=== PATIENT | female | born 1990 | race Two or more races ===

== ENCOUNTER 2023-01-10 00:31 | Emergency (ER) | payer MEDICAID, OTHER ==
[~2023-01-10] VITALS: Ht 172.7 cm; Wt 67.7 kg
[2023-01-10 03:17] VITALS: BP 114/82
[2023-01-10] MEDS ORDERED: CEPH500C PO (04:24)
== END 2023-01-10 04:54 | disposition home or self-care (01) ==
LOC: ER 00:31
DX: L03.112 Cellulitis of left axilla (principal); Z88.6 Allergy status to analgesic agent

== ENCOUNTER 2023-01-11 20:23 | Emergency (ER) | payer MEDICAID ==
[~2023-01-11] VITALS: Ht 172.7 cm; Wt 65.9 kg
[~2023-01-11 20:23] MED LIST: CEPH500C PO
[2023-01-11 23:00] VITALS: BP 126/84
[2023-01-11] MEDS ORDERED: KETOROLAC TROMETH 30 MG/ML 1ML VIAL IM ONE (23:00)
== END 2023-01-11 23:06 | disposition home or self-care (01) ==
LOC: ER 20:23
DX: L02.412 Cutaneous abscess of left axilla (principal); Z88.6 Allergy status to analgesic agent
CPT/HCPCS: 10060; 96372; 99283; J1885

== ENCOUNTER 2024-01-08 09:25 | Emergency (ER) | payer SELFPAY ==
[~2024-01-08] VITALS: Ht 172.7 cm; Wt 65.7 kg
[2024-01-08 11:31] LABS: Urine Bacteria FEW /hpf (None Seen); Urine Blood Negative /uL (Negative); Urine Clarity Clear (Clear); Urine Color Yellow (Yellow); Urine Protein, UAD Negative (Negative); Urine Urobilinogen Normal (Negative); Urine WBC 34 /hpf (0 - 5)
[2024-01-08 11:34] LABS: Basophils # (auto) 0 10 ^3/uL (0-0.2); Basophils % (auto) 0.3 % (0.0-2.0); Eosinophils # (auto) 0 10 ^3/uL (0-0.8); Eosinophils % (auto) 0.3 % (0.0-7.0); Hematocrit 43.4 % (36.0-46.0); Hemoglobin 14.8 g/dL (12.2-16.2); Lymphocytes # (auto) 1.6 10 ^3/uL (0.4-5.4); Lymphocytes % (auto) 15.9 % (10.0-50.0); Mean Corpuscular Volume 91.1 fL (80.0-100.0); Monocytes # (auto) 1.4 10 ^3/uL (0-1.3); Neutrophils % (auto) 69.5 % (37.0-80.0); Red Blood Cells 4.76 10^6/uL (4.0-5.20); White Blood Cell 10.1 10^3/uL (4.4-10.8)
[2024-01-08 12:01] LABS: Alanine Aminotransferase 13 U/L (7-40); Albumin 4.7 g/dL (3.2-4.8); Alkaline Phosphatase 67 U/L (46-116); Anion Gap 6 (5-15); Aspartate Aminotransferase 13 U/L (13-40); BUN/Creatinine Ratio 6.7 (10.0-20.0); Blood Urea Nitrogen 5 mg/dL (9-23); Calcium 9.5 mg/dL (8.5-10.1); Carbon Dioxide 26 mmol/L (20-30); Chloride 105 mmol/L (98-107); Glucose 93 mg/dL (74-106); Potassium 3.6 mmol/L (3.5-5.1); Sodium 137 mmol/L (136-145)
[2024-01-08 12:02] LABS: Bilirubin, Total 0.8 mg/dL (0.2-1.0); Total Protein 7.2 g/dL (5.7-8.2)
[2024-01-08] MEDS: SODIUM CHLORIDE 0.9% 1,000 ML IV ONE (12:16)
[2024-01-08] MEDS: IOHEXOL 300 MG/ML 100ML BOTTLE IJ ONE ×2 (12:16→12:28)
[2024-01-08 12:24] LABS: Lipase 39 U/L (12-53)
[2024-01-08] MEDS ORDERED: NITR-87 PO (14:53)
[2024-01-08] MEDS ORDERED: DICL50TA2 PO (14:53)
[2024-01-08 15:09] VITALS: BP 127/71; PULSE 78; RESP 17; TEMP 98.9; O2SAT 97
== END 2024-01-08 15:18 | disposition home or self-care (01) ==
LOC: ER 09:25
DX: N39.0 Urinary tract infection, site not specified (principal); R10.2 Pelvic and perineal pain; N83.201 Unspecified ovarian cyst, right side; N83.8 Other noninflammatory disorders of ovary, fallopian tube and broad ligament; R10.31 Right lower quadrant pain; Z98.890 Other specified postprocedural states; Z88.5 Allergy status to narcotic agent
CPT/HCPCS: 36415; 74177; 80053; 81001; 83690; 84702; 85025; 96360; 96361; 99285; J7030; Q9967

== ENCOUNTER 2025-03-23 13:09 | Emergency (ER) | payer MEDICAID, OTHER ==
[~2025-03-23] VITALS: Ht 172.7 cm; Wt 64.9 kg
[~2025-03-23 13:09] MED LIST changes: +DICL50TA2 PO; +NITR-87 PO
--- NOTE | 2025-03-23 13:54 | ED.PDOC ---
Lory. trauma (HPI) HPI Comments 34 year old presents for L Rib pain x 5 days No injury Onset started when she woke up in the AM and pain is gradually worsening Pain is constant and radiates from the left ribs to the LUE and down the arm and fingers Pain described as stabbing and worsens with laying supine Pain rated as moderate LMB yesterday Not on BC No other complaints. No other MHx Denies recent surgeries Denies ETOH drugs, Chief Complaint: Rib Pain Time Seen by MD: 13:29 Primary Care Provider: NONE Reviewed notes: Nurses Notes, Medications, Allergies Allergies: Coded Allergies: Hydromorphone (Verified Allergy, Unknown, 01/10/23) Home Meds Active Scripts Nitrofurantoin Monohydrate Mac (Macrobid) 100 Mg Cap, 100 MG PO AMHY for 10 Days, #20 CAP Prov:OSWALDO ARCOS MD 01/08/24 Diclofenac Potassium (Diclofenac Potassium) 50 Mg Tab, 1 TAB PO TIDP for 10 Days, #30 TAB Prov:OSWALDO ARCOS MD 01/08/24 Cephalexin Monohydrate (Cephalexin) 500 Mg Cap, 1 CAP PO BID for 7 Days, #14 CAP 0 Refills Prov:RUSTY LONG 01/10/23 Information Source: Patient Mode of Arrival: Ambulatory Past Medical History PAST MEDICAL HISTORY: Denies 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 Family History Family History: Reviewed,noncontributory to illness Social History Smoker: Non-Smoker Alcohol: Denies ETOH Use Drugs: Denies Drug Use Lives In: Home All Other Systems: Reviewed and Negative Physical Exam General Appearance: No Apparent Distress, Normal HEENT: Normal ENT Inspection, Pharynx Normal, TMs Normal Neck: Full Range of Motion, Non-Tender, Normal, Normal Inspection Respiratory: Chest Non-Tender, Lungs Clear, No Accessory Muscle Use, No Respiratory Distress, Normal Breath Sounds Cardiovascular: No Edema, No JVD, No Murmur, No Gallop, Normal Peripheral Pulses, Regular Rate/Rhythm Breast Exam: Deferred Gastrointestinal: No Organomegaly, Non Tender, No Pulsatile Mass, Normal Bowel Sounds, Soft Genitalia: Deferred Pelvic: Deferred Rectal: Deferred Extremities: No calf tenderness, Normal capillary refill, Normal inspection, Normal range of motion, Non-tender, No pedal edema Musculoskeletal : Apperance: Normal Neurologic: Alert, entry level sales consultant II-XII nml as Tested, No Motor Deficits, Normal Affect, Normal Mood, No Sensory Deficits Cerebellar Function: Normal Reflexes: Normal Skin: Dry, Normal Color, Warm Lymphatic: No Adenopathy Was a procedure done? Was a procedure done?: No Differential Diagnosis Multiple Trauma: Abrasions, Contusion X-Ray, Labs, Meds, VS Vital Signs Date Time Temp Pulse Resp B/P (MAP) Pulse Ox O2 Delivery O2 Flow Rate FiO2 03/23/25 17:43 98.2 82 16 122/84 (97) 98 98.2 03/23/25 17:43 4 17 98 Room Air 03/23/25 13:14 98.1 88 16 118/85 98 98.1 Lab Test 03/23/25 13:57 03/23/25 13:55 Range/Units White Blood Count 8.4 4.4-10.8 10^3/uL Red Blood Count 4.74 4.0-5.20 10^6/uL Hemoglobin 14.3 12.2-16.2 g/dL Hematocrit 42.3 36.0-46.0 % Mean Corpuscular Volume 89.2 80.0-100.0 fL Mean Corpuscular Hemoglobin 30.2 28.0-32.0 pg Mean Corpuscular Hemoglobin Concent 33.9 32.0-36.0 g/dL Red Cell Distribution Width 13.1 11.8-14.3 % Platelet Count 249 140-450 10^3/uL Mean Platelet Volume 7.4 6.9-10.8 fL Neutrophils (%) (Auto) 64.5 37.0-80.0 % Lymphocytes (%) (Auto) 21.8 10.0-50.0 % Monocytes (%) (Auto) 12.1 H 0.0-12.0 % Eosinophils (%) (Auto) 1.1 0.0-7.0 % Basophils (%) (Auto) 0.5 0.0-2.0 % Neutrophils # (Auto) 5.4 1.6-8.6 10 ^3/uL Lymphocytes # (Auto) 1.8 0.4-5.4 10 ^3/uL Monocytes # (Auto) 1.0 0-1.3 10 ^3/uL Eosinophils # (Auto) 0.1 0-0.8 10 ^3/uL Basophils # (Auto) 0 0-0.2 10 ^3/uL Nucleated Red Blood Cells 0.0 % Sodium Level 142 136-145 mmol/L Potassium Level 3.9 3.5-5.1 mmol/L Chloride Level 106 98-107 mmol/L Carbon Dioxide Level 26 20-31 mmol/L Anion Gap 10 5-15 Blood Urea Nitrogen 9 9-23 mg/dL Creatinine 0.82 0.550-1.02 mg/dL Glomerular Filtration Rate Calc 96 >90 mL/min BUN/Creatinine Ratio 11.0 10.0-20.0 Serum Glucose 82 74-106 mg/dL Calcium Level 9.6 8.7-10.4 mg/dL Troponin I High Sensitivity < 3 L </=34 ng/L Lipase 42 12-53 U/L Urine Color Light-yellow Yellow Urine Clarity Clear Clear Urine pH 5.5 5.0-9.0 Urine Specific [place] 1.013 1.001-1.035 Urine Protein Negative Negative Urine Ketones 1+ H Negative Urine Blood Trace H Negative /uL Urine Nitrite Negative Negative Urine Bilirubin Negative Negative Urine Urobilinogen Normal Negative mg/dL Urine Leukocyte Esterase Negative Negative /uL Urine RBC 3 0 - 4 /hpf Urine Microscopic WBC 1 0-5 /HPF Urine Squamous Epithelial Cells Few <5 /hpf Urine Bacteria None seen None Seen /hpf Urine Mucus Few None Seen Urine Glucose Normal Normal mg/dL X-Ray, Labs, Meds, VS Comment I considered cauda equina, spinal cord compression, vertebral malignancy/mets, acute spinal fracture, vertebral osteomyelitis, epidural abscess, infected or obstructed kidney stone, however this is less likely as the patient does not present with lower back pain red flags symptoms such as bowel or bladder dysfunction, saddle anesthesia, paresthesia, and without any history of malignancy or recent back trauma or spinal interventions. ED workup: Defer further imaging and lab work for outpatient follow up at this time Disposition: Discharge. Strict return precautions discussed with the patient with full understanding. Supportive care advised (rest, ice, heat, NSAIDs, stretching exercises) Massage muscles with cold pack or ice for 20 minutes 4 times per day. Usually most useful if there is swelling during the first 48 hours Heating pad on the most painful area for 20 minutes to relieve muscle spasm Sleep and the most comfortable sleeping position (usually on the side with knees bent) Light stretching, no strenuous activity, avoid frequent bending, avoid carrying heavy objects Discussed possible benefits of yoga and acupuncture Return precautions discussed including Inability to walk/bear weight Paresthesia/weakness/leg pain Fecal/urinary incontinence Any worsening symptoms Time of 1ST Reevaluation: 17:00 Reevaluation 1ST: Improved Patient Education/Counseling: Diagnosis, Treatment Family Education/Counseling: Diagnosis, Treatment Departure 1 Departure Time of Disposition: 17:26 Impression: Primary Impression: Back strain Qualified Codes: S39.012A - Strain of muscle, fascia and tendon of lower back, initial encounter Disposition: HOME / SELF CARE / HOMELESS Condition: Stable Discharged With: Self Critical Care Note Critical Care Time?: No Stability Stability form required: No Heart Score Heart Score: Heart Score Response (Comments) Value History N/A 0 EKG N/A 0 Age N/A 0 Risk Factors N/A 0 Troponin N/A 0 Total 0 MIMA JOHNSON NP Mar 23, 2025 13:54
[2025-03-23 14:18] LABS: Hematocrit 42.3 % (36.0-46.0); Hemoglobin 14.3 g/dL (12.2-16.2); Mean Corpuscular Hemoglobin 30.2 pg (28.0-32.0); Mean Corpuscular Volume 89.2 fL (80.0-100.0); Nucleated Red Blood Cells % 0.0 %
[2025-03-23 14:27] LABS: Chloride 106 mmol/L (98-107); Potassium 3.9 mmol/L (3.5-5.1); Sodium 142 mmol/L (136-145)
[2025-03-23 14:28] LABS: Anion Gap 10 (5-15); Calcium 9.6 mg/dL (8.7-10.4); Carbon Dioxide 26 mmol/L (20-31)
[2025-03-23 14:33] LABS: BUN/Creatinine Ratio 11.0 (10.0-20.0); Blood Urea Nitrogen 9 mg/dL (9-23); Glucose 82 mg/dL (74-106)
--- NOTE | 2025-03-23 15:11 | DVH ---
CHEST RADIOGRAPH Indication: R/o PNA Technique: Frontal and lateral view of the chest was obtained Comparison: None FINDINGS: Lines and Tubes: None Lungs: Clear Pleura: No effusion. No pneumothorax. Cardiomediastinal contours: Unremarkable Bones: Unremarkable IMPRESSION: No evidence of acute disease.
[2025-03-23 17:07] LABS: Urine Protein, UAD Negative (Negative)
[2025-03-23 17:43] VITALS: BP 122/84; PULSE 4; RESP 17; TEMP 98.2; O2SAT 98
== END 2025-03-23 17:47 | disposition home or self-care (01) ==
LOC: ER 13:09
DX: S39.012A Strain of muscle, fascia and tendon of lower back, initial encounter (principal); M79.602 Pain in left arm; M79.645 Pain in left finger(s); Z88.5 Allergy status to narcotic agent; Z98.890 Other specified postprocedural states; X58.XXXA Exposure to other specified factors, initial encounter; Y93.89 Activity, other specified; Y92.89 Other specified places as the place of occurrence of the external cause; Y99.8 Other external cause status
CPT/HCPCS: 36415; 71046; 80048; 81001; 83690; 84484; 85025

== ENCOUNTER 2025-04-06 19:02 | Emergency (ER) | payer OTHER ==
[~2025-04-06] VITALS: Ht 172.7 cm; Wt 67.3 kg
[2025-04-06 19:45] LABS: Hematocrit 44.9 % (36.0-46.0); Hemoglobin 15.4 g/dL (12.2-16.2); Mean Corpuscular Hemoglobin 30.5 pg (28.0-32.0); Mean Corpuscular Volume 88.6 fL (80.0-100.0); Nucleated Red Blood Cells % 0.1 %
[2025-04-06 19:51] LABS: Alanine Aminotransferase 17 U/L (7-40); Alkaline Phosphatase 82 U/L (46-116); Anion Gap 9 (5-15); BUN/Creatinine Ratio 12.5 (10.0-20.0); Bilirubin, Total 0.3 mg/dL (0.2-1.0); Blood Urea Nitrogen 10 mg/dL (9-23); Calcium 9.9 mg/dL (8.7-10.4); Carbon Dioxide 29 mmol/L (20-31); Chloride 105 mmol/L (98-107); Lipase 49 U/L (12-53); Potassium 3.7 mmol/L (3.5-5.1); Sodium 143 mmol/L (136-145); Total Protein 7.5 g/dL (5.7-8.2)
[2025-04-06 19:52] LABS: Albumin 4.9 g/dL (3.2-4.8); Glucose 63 mg/dL (74-106)
--- NOTE | 2025-04-06 20:06 | ED.PDOC ---
History of Present Illness HPI Comments 34 y/o F, with a history of , presents with c/c of nonradiating, lower abdominal pain, nausea, and abnormal stools. Patient endorses on 2x day history of sharp abdominal pain with intermittent nausea following initial, unprovoked and atraumatic onset. She comments on, this morning, noticing her stools containing 'worms' inside, that she describes as 'long' and 'white' in appearance. No modifiers or history of similar occurrence in the past. She does admit to having two dogs at home, currently. Denial of any known sick contacts, travel, abnormal food consumption, or further pertinent events or history. Denial of any further associated symptoms at this time. Chief Complaint: Abdominal Pain Time Seen by MD: 19:00 Primary Care Provider: NONE Reviewed Notes: Nurses Notes, Medications, Allergies Allergies: Coded Allergies: Hydromorphone (Verified Allergy, Unknown, 01/10/23) Home Meds Active Scripts Prednisone (Prednisone) 20 Mg Tab, 20 MG PO BID for 5 Days, #10 TAB Prov:DEAN PARKS MD 04/06/25 Albendazole (Albendazole) 200 Mg Tab, 400 MG PO BID for 10 Days, #40 TAB Prov:DEAN PARKS MD 04/06/25 Sulfamethoxazole W/Trimethopri (Bactrim Ds Tablet) 1 Tab Tb, 1 TAB PO BID for 7 Days, #14 TAB Prov:DEAN PARKS MD 04/06/25 Nitrofurantoin Monohydrate Mac (Macrobid) 100 Mg Cap, 100 MG PO AMHY for 10 Days, #20 CAP Prov:OSWALDO ARCOS MD 01/08/24 Diclofenac Potassium (Diclofenac Potassium) 50 Mg Tab, 1 TAB PO TIDP for 10 Days, #30 TAB Prov:OSWALDO ARCOS MD 01/08/24 Cephalexin Monohydrate (Cephalexin) 500 Mg Cap, 1 CAP PO BID for 7 Days, #14 CAP 0 Refills Prov:RUSTY LONG 01/10/23 Information Source: Patient Mode of Arrival: Ambulatory Past Medical History PAST MEDICAL HISTORY: Denies 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 Family History Family History: Reviewed,noncontributory to illness Social History Smoker: Non-Smoker Alcohol: Denies ETOH Use Drugs: Denies Drug Use Lives In: Home All Other Systems: Reviewed and Negative (Comprehensive review of systems are negative unless stated in HPI) Physical Exam General Appearance: Mild Distress, Normal HEENT: Normal ENT Inspection, Pharynx Normal, TMs Normal Neck: Full Range of Motion, Non-Tender, Normal, Normal Inspection Respiratory: Chest Non-Tender, Lungs Clear, No Accessory Muscle Use, No Respiratory Distress, Normal Breath Sounds Cardiovascular: No Edema, No JVD, No Murmur, No Gallop, Normal Peripheral Pulses, Regular Rate/Rhythm Breast Exam: Deferred Gastrointestinal: LLQ (tenderness ), No Organomegaly, No Pulsatile Mass, Normal Bowel Sounds, RLQ (tenderness ), Soft, Tenderness (bilateral lower quadrant tenderness ) Genitalia: Deferred Pelvic: Deferred Rectal: Deferred Extremities: No calf tenderness, Normal capillary refill, Normal inspection, Normal range of motion, Non-tender, No pedal edema Musculoskeletal : Apperance: Normal Neurologic: Alert, protective signal installer II-XII nml as Tested, No Motor Deficits, Normal Affect, Normal Mood, No Sensory Deficits Cerebellar Function: Normal Reflexes: Normal Skin: Dry, Normal Color, Warm Lymphatic: No Adenopathy Was a procedure done? Was a procedure done?: No Differential Dx Considerations may include: viral syndrome, parasites, dehydration, electrolyte imbalance, gastritis, gastroenteritis, GERD, diverticulitis, ovarian cysts/torsion, nephrolithiasis, UTI, among others X-Ray, Labs, Meds, VS Vital Signs Date Time Temp Pulse Resp B/P (MAP) Pulse Ox O2 Delivery O2 Flow Rate FiO2 04/06/25 22:38 98.2 69 18 122/82 (95) 99 98.2 04/06/25 19:03 97.5 89 18 137/89 100 97.5 Lab Test 04/06/25 19:45 04/06/25 19:28 Range/Units Urine Color Colorless Yellow Urine Clarity Turbid H Clear Urine pH 5.5 5.0-9.0 Urine Specific [place] 1.011 1.001-1.035 Urine Protein Negative Negative Urine Ketones Negative Negative Urine Blood Negative Negative /uL Urine Nitrite Negative Negative Urine Bilirubin Negative Negative Urine Urobilinogen Normal Negative mg/dL Urine Leukocyte Esterase 2+ Negative /uL Urine RBC 3 0 - 4 /hpf Urine Microscopic WBC 19 H 0-5 /HPF Urine Squamous Epithelial Cells Mod <5 /hpf Urine Transitional Epithelial Cells Few <2 /hpf Urine Bacteria Few H None Seen /hpf Urine Mucus Few None Seen Urine Yeast (Budding) Few None Seen /hpf Urine Glucose Normal Normal mg/dL Urine Test Negative Negative White Blood Count 6.3 4.4-10.8 10^3/uL Red Blood Count 5.07 4.0-5.20 10^6/uL Hemoglobin 15.4 12.2-16.2 g/dL Hematocrit 44.9 36.0-46.0 % Mean Corpuscular Volume 88.6 80.0-100.0 fL Mean Corpuscular Hemoglobin 30.5 28.0-32.0 pg Mean Corpuscular Hemoglobin Concent 34.4 32.0-36.0 g/dL Red Cell Distribution Width 12.8 11.8-14.3 % Platelet Count 326 140-450 10^3/uL Mean Platelet Volume 6.8 L 6.9-10.8 fL Neutrophils (%) (Auto) 50.5 37.0-80.0 % Lymphocytes (%) (Auto) 37.5 10.0-50.0 % Monocytes (%) (Auto) 10.2 0.0-12.0 % Eosinophils (%) (Auto) 0.9 0.0-7.0 % Basophils (%) (Auto) 0.9 0.0-2.0 % Neutrophils # (Auto) 3.2 1.6-8.6 10 ^3/uL Lymphocytes # (Auto) 2.3 0.4-5.4 10 ^3/uL Monocytes # (Auto) 0.6 0-1.3 10 ^3/uL Eosinophils # (Auto) 0.1 0-0.8 10 ^3/uL Basophils # (Auto) 0.1 0-0.2 10 ^3/uL Nucleated Red Blood Cells 0.1 % Sodium Level 143 136-145 mmol/L Potassium Level 3.7 3.5-5.1 mmol/L Chloride Level 105 98-107 mmol/L Carbon Dioxide Level 29 20-31 mmol/L Anion Gap 9 5-15 Blood Urea Nitrogen 10 9-23 mg/dL Creatinine 0.80 0.550-1.02 mg/dL Glomerular Filtration Rate Calc 99 >90 mL/min BUN/Creatinine Ratio 12.5 10.0-20.0 Serum Glucose 63 L 74-106 mg/dL Calcium Level 9.9 8.7-10.4 mg/dL Total Bilirubin 0.3 0.2-1.0 mg/dL Aspartate Amino Transferase (AST) 17 13-40 U/L Alanine Aminotransferase (ALT) 17 7-40 U/L Alkaline Phosphatase 82 46-116 U/L Total Protein 7.5 5.7-8.2 g/dL Albumin 4.9 H 3.2-4.8 g/dL Lipase 49 12-53 U/L Current Medications Medications (Trade) Dose Ordered Sig/Leatha Route Start Time Stop Time Status Last Admin Prednisone 40 mg ONCE ONCE PO 04/06/25 19:45 04/06/25 19:50 DC 04/06/25 22:41 [place] [id number] Ph: [phone] DIAGNOSTIC IMAGING Diagnostic Imaging Report : [id number] Signed PATIENT: KENISHA LOAIZA ACCT: [id number] UNIT: [id number] : 1990 LOC: ER ROOM / BED: / AGE / SEX: 34 / F ADM STATUS: REG ER SERVICE 40 ORDERING PHYSICIAN: DEAN PARKS MD PROCEDURE(s): ABPL - CT AB PEL WO CON-NO ORAL OR IV REASON: lower abd pain ORDER NUMBER(s): [id number], ACCESSION NUMBER(s): [id number] Exam: CT CT AB PEL WO CON-NO ORAL OR IV History: lower abd pain Comparison Study: None Technique: Multidetector spiral CT of the abdomen was performed from lung bases to pubic symphysis. Imaging was performed without IV contrast. Axial, coronal and sagittal multiplanar reformats were obtained from the axial data set by the technologist. Radiation dose : 1. Abdomen/Pelvis: CTDIvol 5.82 mGy, DLP 285.6 mGy*cm. Findings: Evaluation of solid organs is limited due to lack of intravenous contrast use. Lung Bases: No acute or significant lung base finding. Normal heart size. No pleural or pericardial effusion. Liver: The liver is normal in size. No focal lesions. Gallbladder and biliary Tree: Unremarkable Spleen: Unremarkable Pancreas: The pancreas is grossly normal in appearance. Adrenal Glands: Unremarkable Kidneys: Bilateral nonobstructing calculi measuring up to 6 mm. No hydronephrosis. Bladder: Grossly unremarkable for degree of distention. Bowel: The stomach is grossly normal in appearance. Small bowel and colon are normal in caliber and distribution. The appendix is not visualized; however, no secondary findings of acute appendicitis identified. Fairly large volume of stool throughout the colon. Ascites: Absent Lymphadenopathy: No mesenteric, retroperitoneal or periportal lymphadenopathy. Abdominal wall and Mesentery: Unremarkable. Vasculature: The visualized abdominal aorta is normal in size and caliber. Evaluation of abdominal and pelvic vessels is limited due to lack of intravenous contrast. Pelvic Organs: Unremarkable Musculoskeletal: No aggressive focal bony lesions, acute fractures or dislocation. IMPRESSION: No acute abdominal or pelvic findings. Fairly large volume of stool throughout the colon. Radiation optimization: All CT scans at this facility use at least one of these dose optimization techniques: automated exposure control mA and/or kV adjustment per patient size (includes targeted exams where dose is matched to clinical indication) or iterative reconstruction. ATED BY: TRUONG BUCHANAN MD DICTATED DATE/TIME: 04/06/252233 SIGNED BY: TRUONG BUCHANAN MD SIGNED DATE/TIME: 04/06/252233 CC: Time of 1ST Reevaluation: 19:30 Reevaluation 1ST: Unchanged Patient Education/Counseling: Diagnosis, Treatment, Need For Follow Up Family Education/Counseling: No Family Present SEPSIS Sepsis Screen Date sepsis recognized/suspect: Apr 06, 2025 Time Sepsis recognized/suspect: 190 Recent Procedure: No On Antibiotic Therapy: No Respiratory Rate >20: No Heart Rate >90: No Temp<36 C (96.8 F) or >38.3 C: No SBP <90 or MAP <65 mmHG: No New Acute Mental Status Change: No Is the patient on CPAP, BIPAP,: No Physician Orders Ct Ab Pel Wo Con-No Oral Or Iv (04/06/25 19:41) Vital Signs Date Time Temp Pulse Resp B/P (MAP) Pulse Ox O2 Delivery O2 Flow Rate FiO2 04/06/25 22:38 98.2 69 18 122/82 (95) 99 98.2 04/06/25 19:03 97.5 89 18 137/89 100 97.5 Laboratory Tests Test 04/06/25 19:28 White Blood Count 6.3 10^3/uL (4.4-10.8) Medications Medications Dose Ordered Sig/Leatha Route Start Time Stop Time Status Last Admin Dose Admin Prednisone 40 mg ONCE ONCE PO 04/06/25 19:45 04/06/25 19:50 DC 04/06/25 22:41 Departure 1 Departure Time of Disposition: 21:30 Impression: Primary Impression: Worms in stool Additional Impression: Right sided abdominal pain Disposition: HOME / SELF CARE / HOMELESS Condition: Stable e-Prescriptions Prednisone (Prednisone) 20 Mg Tab 20 MG PO BID for 5 Days, #10 TAB Prov: DEAN PARKS MD 04/06/25 Albendazole (Albendazole) 200 Mg Tab 400 MG PO BID for 10 Days, #40 TAB Prov: DEAN PARKS MD 04/06/25 Sulfamethoxazole W/Trimethopri (Bactrim Ds Tablet) 1 Tab Tb 1 TAB PO BID for 7 Days, #14 TAB Prov: DEAN PARKS MD 04/06/25 Discharged With: Self Critical Care Note Critical Care Time?: No Stability Stability form required: No Heart Score Heart Score: Heart Score Response (Comments) Value History N/A 0 EKG N/A 0 Age N/A 0 Risk Factors N/A 0 Troponin N/A 0 Total 0 I personally scribed for DEAN PARKS MD ([email or web address]) on 04/06/25 at 20:06. Electronically submitted by Travis Pittman ([email or web address]). I personally scribed for DEAN PARKS MD ([email or web address]) on 04/06/25 at 22:54. Electronically submitted by Travis Pittman [email or web address]). DEAN PARKS MD Apr 06, 2025 20:06
[2025-04-06 21:51] LABS: Urine Budding Yeast FEW /hpf (None Seen); Urine Protein, UAD Negative (Negative)
--- NOTE | 2025-04-06 22:36 | DVH ---
Exam: CT CT AB PEL WO CON-NO ORAL OR IV History: lower abd pain Comparison Study: None Technique: Multidetector spiral CT of the abdomen was performed from lung bases to pubic symphysis. I maging was performed without IV contrast. Axial, coronal and sagittal multiplanar reformats were obta ined from the axial data set by the technologist. Radiation dose : 1. Abdomen/Pelvis: CTDIvol 5.82 mGy, DLP 285.6 mGy*cm. Findings: Evaluation of solid organs is limited due to lack of intravenous contrast use. Lung Bases: No acute or significant lung base finding. Normal heart size. No pleural or pericardial effusion. Liver: The liver is normal in size. No focal lesions. Gallbladder and biliary Tree: Unremarkable Spleen: Unremarkable Pancreas: The pancreas is grossly normal in appearance. Adrenal Glands: Unremarkable Kidneys: Bilateral nonobstructing calculi measuring up to 6 mm. No hydronephrosis. Bladder: Grossly unremarkable for degree of distention. Bowel: The stomach is grossly normal in appearance. Small bowel and colon are normal in caliber and d istribution. The appendix is not visualized; however, no secondary findings of acute appendicitis leatha ntified. Fairly large volume of stool throughout the colon. Ascites: Absent Lymphadenopathy: No mesenteric, retroperitoneal or periportal lymphadenopathy. Abdominal wall and Mesentery: Unremarkable. Vasculature: The visualized abdominal aorta is normal in size and caliber. Evaluation of abdominal a nd pelvic vessels is limited due to lack of intravenous contrast. Pelvic Organs: Unremarkable Musculoskeletal: No aggressive focal bony lesions, acute fractures or dislocation. IMPRESSION: No acute abdominal or pelvic findings. Fairly large volume of stool throughout the colon. Radiation optimization: All CT scans at this facility use at least one of these dose optimization ly hniques: automated exposure control mA and/or kV adjustment per patient size (includes targeted exam s where dose is matched to clinical indication) or iterative reconstruction.
[2025-04-06 22:38] VITALS: BP 122/82; PULSE 69; RESP 18; TEMP 98.2; O2SAT 99
[2025-04-06] MEDS: predniSONE 20 MG TAB PO ONE (22:41)
[2025-04-06] MEDS ORDERED: ALBE200T9 PO (22:57)
[2025-04-06] MEDS ORDERED: PRED20TA2 PO (22:57)
[2025-04-06] MEDS ORDERED: BACDST PO (22:57)
== END 2025-04-07 00:15 | disposition home or self-care (01) ==
LOC: ER 19:02
DX: B82.9 Intestinal parasitism, unspecified (principal); Z79.52 Long term (current) use of systemic steroids; Z88.5 Allergy status to narcotic agent
CPT/HCPCS: 36415; 74176; 80053; 81001; 81025; 83690; 85025; 99284; J7512